=== PATIENT | female | born 1945 | race Hispanic/Latino ===

== ENCOUNTER 2019-01-06 05:04 | Outpatient (CLI) | payer MEDICARE, BC | END 2019-01-06 05:05 | disposition home or self-care (01) | LOC: PET-BROA 05:04 | DX: C18.9 Malignant neoplasm of colon, unspecified (principal) ==

== ENCOUNTER 2019-01-16 13:05 | Day surgery (SDC) | payer MEDICARE, BC ==
[2019-01-13 14:35] VITALS: BMI 34.4
[2019-01-16 14:08] LABS: BASO # 0.01 K/mm3 (0.0-2.0); BASO % 0.1 % (0.0-3.0); EOS # 0.2 (0.0-0.7); EOS % 3.3 % (1.5-5.0); HEMOGLOBIN 13.7 g/dL (12.0-16.0); LYMPH # 1.1 (1.2-3.4); LYMPH % 16.8 % (22.0-35.0); MEAN CELL VOLUME 90.7 fl (80.0-105.0); MEAN CORPUSCULAR HEMOGLOBIN 29.7 pg (25.0-35.0); MEAN CORPUSCULAR HGB CONC 32.7 g/dl (31.0-37.0); MEAN PLATELET VOLUME 10.1 fl (7.0-11.0); MONO # 0.5 (0.1-0.6); MONO % 6.9 % (1.0-6.0); RBC 4.62 10^6/uL (3.5-6.1); RED CELL DISTRIBUTION WIDTH 13.8 % (11.5-14.5); WHITE BLOOD COUNT 6.7 10^3/uL (4.5-11.0)
[2019-01-16 14:13] LABS: INR 1.11; PARTIAL THROMBOPLASTIN TIME 33.2 Seconds (26.9-38.3); PROTHROMBIN TIME 12.5 SECONDS (9.4-12.5)
[2019-01-16 14:14] LABS: BLOOD UREA NITROGEN 17 mg/dL (7-21); CALCIUM 9.8 mg/dL (8.4-10.5); GFR NON-AFRICAN AMERICAN > 60
[2019-01-16] MEDS ORDERED: Midazolam 2 MG/2 ML VIAL ONE (19:15)
[2019-01-16] MEDS ORDERED: Midazolam 2 MG/2 ML VIAL IVP ONE (19:25)
[2019-01-16] MEDS ORDERED: Oxycodone/Acetaminophen 5/325 mg Tab PO PRN (19:44)
[2019-01-16] MEDS ORDERED: Sodium Chloride 0.45% 1,000 ML IV SCH (19:45)
--- NOTE | 2019-01-16 20:34 | CT ---
PROCEDURE: CT guided pelvic biopsy. HISTORY: Colon carcinoma. 2 cm mass in the pelvis near the anastomosis. Positive PET. Evaluate for recurrence. PHYSICIAN(S): Liang Bolaños MD. TECHNIQUE: The relative risks and indications of the procedure were explained to the patient and consent obtained. The patient was placed prone on the CT scanner and preliminary images through the pelvis obtained. Conscious sedation and monitoring were provided throughout the procedure by a nurse. There is a triangular 2 cm opacity in the left pelvis corresponding to the abnormal mass seen on PET scan.. A left posterior trans gluteal approach was selected and the area prepped and draped in the usual sterile fashion. 1% Xylocaine was used to anesthetize the skin and soft tissues. A 17-gauge guiding needle was advanced into the 2 cm triangular mass in the left pelvis.. Its position was confirmed with CT. Using coaxial technique, multiple core biopsies were obtained. The postprocedure images show no evidence of significant hemorrhage. IMPRESSION: 1. CT-guided pelvic biopsy as described above.
[2019-01-17 01:51] VITALS: RESP 20
[2019-01-17 01:54] VITALS: PULSE 69
--- NOTE | 2019-01-17 02:23 | CP.PCM.PN ---
Subjective - Date & Time of Evaluation Date of Evaluation: 01/17/19 Time of Evaluation: 02:22 - Subjective Subjective: S: Patient has no acute symptoms. Nurse requested to hold discharge order. It is too late (10:45PM) and there is nobody at home to monitor patient. Had low pulse ox 90-92 went up to 98% after nasal canula 2l/ min. O: VSS. Not in distress. LUNGS: normal breathing pattern. A:Hypoxia. P:Placed on oxygen. Monitor FiO2. Will enter order to hold dicharge until AM. Objective - Vital Signs/Intake and Output Vital Signs (last 24 hours): Temp Pulse Resp BP Pulse Ox 97.4 F L 69 20 147/81 98 01/16/19 21:40 01/16/19 21:40 01/16/19 21:40 01/16/19 21:40 01/16/19 22:00 Intake and Output: 01/16/19 01/17/19 18:59 06:59 Intake Total 100 Balance 100 - Medications Medications: Current Medications Acetaminophen (Tylenol 325mg Tab) 650 mg PO Q4 PRN PRN Reason: Pain, Mild (1-3) Sodium Chloride (Sodium Chloride 0.45%) 1,000 mls @ 80 mls/hr IV .[id number] [facility] Ondansetron HCl (Zofran Inj) 4 mg IVP Q6H PRN PRN Reason: Nausea/Vomiting Oxycodone/Acetaminophen (Percocet 5/325 Mg Tab) 1 tab PO Q4H PRN PRN Reason: Pain, moderate (4-7) Stop: 01/19/19 19:45 - Labs Labs: 01/16/19 13:45 01/16/19 13:45 PT 12.5 SECONDS (9.4-12.5) 01/16/19 13:45 INR 1.11 01/16/19 13:45 APTT 33.2 Seconds (26.9-38.3) 01/16/19 13:45
[2019-01-17 08:45] VITALS: BP 132/64; TEMP 98.1; O2SAT 97
== END 2019-01-17 12:09 | disposition home or self-care (01) ==
LOC: SDS 13:05 → 3RSO 21:00 → SDS 01-17 12:09
PROVIDERS: ATTEND Radiology Vascular & Interventional Radiology
DX: C79.89 Secondary malignant neoplasm of other specified sites (principal); Z85.048 Personal history of other malignant neoplasm of rectum, rectosigmoid junction, and anus; Z93.3 Colostomy status; R09.02 Hypoxemia; I10 Essential (primary) hypertension; F41.9 Anxiety disorder, unspecified; Z90.710 Acquired absence of both cervix and uterus; Z88.0 Allergy status to penicillin

== ENCOUNTER 2019-01-23 12:56 | Outpatient (CLI) | payer MEDICARE, BC | END 2019-01-23 12:57 | disposition home or self-care (01) | LOC: PAT 12:56 ==

== ENCOUNTER 2019-01-27 07:12 | Inpatient (IN) | payer MEDICARE, BC ==
[2019-01-13 14:35] VITALS: BMI 34.4
[~2019-01-27 07:12] MED LIST: Clindamycin 300 MG/50 ML D5W Premix IVPB ONE; MetroNIDAZOLE 500 mg/100 ml IVPB ONE
[2019-01-27] MEDS ORDERED: ePHEDrine 50 mg/ml Inj ONE (09:10)
[2019-01-27] MEDS ORDERED: Phenylephrine 10 mg/ml Inj ONE (09:10)
[2019-01-27] MEDS ORDERED: Propofol 10 mg/ml Inj (20 ML) ONE (09:10)
[2019-01-27] MEDS ORDERED: Succinylcholine 200 mg/10 ml Inj IV ONE (09:10)
[2019-01-27] MEDS ORDERED: Rocuronium 10 mg/ml (5 ml) ONE ×2 (09:11→11:07)
[2019-01-27] MEDS ORDERED: Bupivacaine Liposomal Inj 20 ml ONE ×2 (09:30→13:20)
[2019-01-27] MEDS ORDERED: Bupivacaine 0.5% 50 ML IJ ONE ×2 (09:41→12:42)
[2019-01-27] MEDS ORDERED: metroNIDAZOLE IV 500 mg/100 ml 500 MG/100 ML BAG ONE (10:01)
[2019-01-27] MEDS ORDERED: Bupivacaine 0.5% Inj(30mL) IJ ONE (10:15)
--- NOTE | 2019-01-27 12:38 | RAD ---
Date of service: 01/27/2019 PROCEDURE: Fluoroscopy up to 1 hr HISTORY: N COMPARISON: TECHNIQUE: 4.1 sec of fluoro time. Cumulative dose 0.67 mGy. 2 images were submitted FINDINGS: The tip of the Port-A-Cath is seen in the right atrium. IMPRESSION: As above
[2019-01-27] MEDS ORDERED: Neostigmine Methylsulfate 3mg/3ml Syringe IV ONE (12:43)
[2019-01-27] MEDS ORDERED: Potassium Chloride 20 MEQ in Dextrose 5%/0.45% NS 1,000 ML IV SCH (14:15)
--- NOTE | 2019-01-27 14:17 | PCM.SURG1 ---
Surgeon's Initial Post Op Note - Surgeon's Notes Surgeon: Phill Brar MD Fnp: Maria Guadalupe Villasenor, PGY-4; Moon Lee, PGY-2 Type of Anesthesia: General Endo Anesthesia Administered By: Dr. Walters Pre-Operative Diagnosis: Pelvic mass, ventral hernias x 2, need for chemotherapy Operative Findings: Adhesions, small bowel enterotomy, see op report Post-Operative Diagnosis: Pelvic mass, ventral hernias x 2, need for chemotherapy Operation Performed: Exploratory laparotomy, primary ventral hernia repair x 2, primary parastomal hernia repair, small bowel resection with side to side anastomosis, RIJ portacath insertion Specimen/Specimens Removed: Small bowel, hernia sacs Estimated Blood Loss: EBL {In ML}: 250 Blood Products Given: N/A Drains Used: Jerrell Post-Op Condition: Fair Date of Surgery/Procedure: 01/27/19 Time of Surgery/Procedure: 14:17
[2019-01-27] MEDS ORDERED: HYDROmorphone 0.5 mg/0.5 ml ISec IVP PRN (14:21)
[2019-01-27] MEDS ORDERED: Metoprolol 1 mg/ml Inj IVP PRN (14:25)
[2019-01-27] MEDS ORDERED: Lactated Ringer's 1,000 ML IV SCH (14:30)
[2019-01-27] MEDS ORDERED: metroNIDAZOLE IV 500 mg/100 ml 500 MG/100 ML BAG IVPB SCH (15:15)
[2019-01-27] MEDS ORDERED: Clindamycin 600mg/50ml D5W 600 MG/50 ML VIAL IVPB SCH (15:15)
[2019-01-27] MEDS ORDERED: HYDROmorphone 0.5 mg/0.5 ml ISec ONE (15:25)
--- NOTE | 2019-01-27 15:54 | RAD ---
Date of service: 01/27/2019 HISTORY: RIJ portacath placement, in PACU COMPARISON: 01/23/2019 TECHNIQUE: 1 view obtained. FINDINGS: LUNGS: Right IJ Port-A-Cath terminates at the junction of the SVC and right atrium. There is no pneumothorax. Nasogastric tube is in satisfactory position PLEURA: No significant pleural effusion identified, no pneumothorax apparent. CARDIOVASCULAR: No aortic atherosclerotic calcification present. Mild cardiomegaly no pulmonary vascular congestion. OSSEOUS STRUCTURES: No significant abnormalities. VISUALIZED UPPER ABDOMEN: Normal. OTHER FINDINGS: None. IMPRESSION: Right IJ Port-A-Cath terminates at the junction of the SVC and right atrium. There is no pneumothorax. Nasogastric tube is in satisfactory position
[2019-01-27] MEDS ORDERED: Influenza Vaccine 60 mcg/0.5 mL SYR (4YR UP) IM ONE (22:48)
[2019-01-27] MEDS ORDERED: Pneumococcal 23-Valent Vaccine IM ONE (22:48)
[2019-01-28] MEDS: Lactated Ringer's 1,000 ML IV SCH ×2 (01:00→10:50)
[2019-01-28] MEDS ORDERED: Clindamycin 600mg/50ml D5W 600 MG/50 ML VIAL IVPB SCH (01:30)
[2019-01-28] MEDS ORDERED: metroNIDAZOLE IV 500 mg/100 ml 500 MG/100 ML BAG IVPB SCH (02:00)
[2019-01-28 07:04] LABS: HEMOGLOBIN 11.8 g/dL (12.0-16.0); LYMPH # 0.9 (1.2-3.4); LYMPH % 7.2 % (22.0-35.0); MEAN CELL VOLUME 89.6 fl (80.0-105.0); MEAN CORPUSCULAR HEMOGLOBIN 28.5 pg (25.0-35.0); MEAN CORPUSCULAR HGB CONC 31.8 g/dl (31.0-37.0); MEAN PLATELET VOLUME 10.1 fl (7.0-11.0); MONO % 7.5 % (1.0-6.0); RBC 4.14 10^6/uL (3.5-6.1); RED CELL DISTRIBUTION WIDTH 13.4 % (11.5-14.5); WHITE BLOOD COUNT 12.6 10^3/uL (4.5-11.0)
[2019-01-28 07:10] LABS: BLOOD UREA NITROGEN 12 mg/dL (7-21); CALCIUM 8.2 mg/dL (8.4-10.5); GFR NON-AFRICAN AMERICAN > 60
--- NOTE | 2019-01-28 09:33 | OP ---
PROCEDURE DATE: 01/27/2019 SURGEON: Phill Brar MD CHIEF MEDICAL DIRECTOR: Maria Guadalupe Villasenor DO, PGY-3 SECOND REGISTERED NURSE CARDIAC: Moon Lee DO, PGY-2 GOLD LETTERER: Dr. Selena ortiz. ANESTHESIA: General endotracheal - Q ball (On-Q). PREOPERATIVE DIAGNOSES: 1. Ventral hernia - paracolostomy hernia. 2. Recurrent rectal carcinoma. POSTOPERATIVE DIAGNOSES: 1. Ventral hernia - paracolostomy hernia. 2. Recurrent rectal carcinoma. 3. Second incisional ventral hernia (total two) and paracolostomy hernia. 4. Extensive adhesions. 5. Recurrent rectal cancer. PROCEDURES: 01/27/2019: 1. Exploratory laparotomy with lysis of adhesions. 2. Small bowel resection with anastomosis. 3. Repair of pericolostomy hernia. 4. Ventral herniorrhaphy x2. 5. Insertion of a right internal jugular single-lumen Port-A-Cath. OPERATIVE INDICATION: The patient is a 73-year-old female who is 3 years post abdominal perineal resection of the rectal carcinoma that had been preoperatively excised and treated with radiation. Over this period of time, she has been followed with PET - CT scanning demonstrating activity in the rectal space without finding any palpable lesion and a new lesion in the lower pelvis on the left side that is biopsied by Dr. Liang Bolaños with CT scan confirming adenocarcinoma consistent with recurrent rectal cancer. There are no other findings in the PET scanning and the patient has been advised that the oncologist would like to have the lesion removed, so chemotherapy can be initiated. At the time of the procedure, the patient will have a Port-A-Cath placed to facilitate the chemotherapy and the pericolostomy hernia and incisional hernia that have become quite large will be repaired at the same time. Risks, benefits and the alternatives with their anticipated outcomes were discussed with the patient and she signs the informed consent. DESCRIPTION OF PROCEDURE: The patient was brought to the operating room, identified by her wristband, undergoes time-out procedure, is placed on the table in a supine manner, undergoes the induction of general anesthesia and insertion of an endotracheal tube. Sequential compression devices were placed on the lower extremities. The abdomen was electrically clipped, prepped with Hibiclens, chlorhexidine preparation of the patient was aseptically draped. The colostomy is closed with a running locking 2-0 polyester suture to prevent spill and the incision was closed with iodine-impregnated -Drape. Midline incision was made from the pubis up all the way towards the xiphoid and sharp dissection carried down through to the hernia sac found below. Hemostasis was obtained with cautery. The hernia sac is dissected free and the peritoneum was entered between clamps and adhesions were encountered and were sharply lysed throughout. A second hernia sac is found in the upper end of the incision and this was then exposed with extension of the incision and excision of the hernia sac. Both hernia sacs submitted to pathology in formalin. The abdomen is now completely explored and safe for adhesions. No gross tumor was found anywhere throughout the multiple explorations including running of the small bowel more than 4 or 5 times. The pelvis contained multiple loops of small bowel in the region where the PET scanning lit up and with meticulous dissection, this was completely removed and gross examination of the presacral space failed to reveal any further malignancy. The mesentery is now somewhat more hidden by the dissection and it is elected at this point to excise this portion of the small bowel which was stuck in the pelvis near the region of the positive PET scan and a [id number] anastomosis was performed with the MARY stapling devices. The mesentery was closed with running 2-0 chromic catgut suture. Attention was now drawn to the paracolostomy hernia which was closed with interrupted #1 Prolene sutures from the inside of the abdomen closing the defect significantly and allowing one fingerbreadth alongside the descending colon. Attention was now drawn to the midline which was confirmed clear off any further hernias and closed with interrupted [id number] Smead-Schilling retention-type sutures with #1 Prolene sutures. A Jerrell drain was placed into the peritoneal cavity from the right side, placed down in the pelvis and secured with 2-0 Surgidac polyester suture. Once the subcutaneous space was completely closed and hemostasis confirmed, the wound was lavaged with saline and closed with 3-0 Polysorb continuous suture and the skin with the AutoSuture skin stapler. An On-Q ball is utilized with placement at the time of the incisional closure in the preperitoneal space and further infiltration with Exparel on the fascia and skin. The right internal jugular Port-A-Cath was placed under direct fluoroscopic vision and is secured with 3-0 Polysorb subcuticular closure and Dermabond adhesive. The Port-A-Cath was accessed at this point, flushed with heparinized saline and portable x-ray will be taken postoperatively. The patient is now awakened, extubated, transported to the recovery room in a satisfactory condition. Sponge, instrument and suture count were verified as correct at the end of the procedure. Estimated blood loss during the procedure was 250 mL of blood. Surgical assistants were present throughout and were extremely essential in the dissection and in the performance of this procedure. This dictation will be electronically signed without being read. Phill Brar MD
[2019-01-28] MEDS ORDERED: Potassium Chloride 20 mEq/15 ml LIQ UD PO STA (12:54)
--- NOTE | 2019-01-28 13:47 | CP.PCM.PCO ---
Additional Comments - Additional Comments Additional Comments: POD #1 operative report viewed, NGT, DENNY, monge intact, repeat labs in am, surgery following, PT eval pending
--- NOTE | 2019-01-28 14:01 | CP.PCM.PN ---
<Moon Lee - Last Filed: 01/28/19 14:04> Subjective - Date & Time of Evaluation Date of Evaluation: 01/28/19 Time of Evaluation: 09:20 - Subjective Subjective: General surgery progress note for Dr. Brar-Moon Lee, PGY-2 Pt seen/examined at bedside with surgical team Pt reports pain well controlled overnight without requiring break through IV pain medications. Reports abdominal pain with coughings and movement. States that she had some nausea and vomited last night- she attributes it to the pain medications. Pt reports feeling weak due to lack of PO intake for the past 5 days. No output to ostomy yet. NGT with 250 dark gastric contents out/12s. Jerrell with 70cc serosanguinous output over 24hrs. UOP 150cc/12 hrs. Objective - Vital Signs/Intake and Output Vital Signs (last 24 hours): Temp Pulse Resp BP Pulse Ox 99.9 F H 88 20 123/64 96 01/28/19 06:00 01/28/19 06:00 01/28/19 06:00 01/28/19 06:00 01/28/19 06:00 Intake and Output: 01/28/19 01/28/19 06:59 18:59 Intake Total 1500 Output Total 390 Balance 1110 - Medications Medications: Current Medications Enoxaparin Sodium (Lovenox) 40 mg SC DAILY [facility]; Protocol Hydromorphone HCl (Dilaudid) 0.25 mg IVP Q3H PRN PRN Reason: Pain, severe (8-10) Potassium Chloride 20 meq/ (Dextrose/Sodium Chloride) 1,010 mls @ 125 mls/hr IV .Q8H5M [facility] Metoprolol Tartrate (Lopressor) 2.5 mg IVP Q6 PRN PRN Reason: Hypertension Ondansetron HCl (Zofran Inj) 4 mg IVP Q6 PRN PRN Reason: Nausea/Vomiting Last Admin: 01/27/19 23:25 Dose: 4 mg Ondansetron HCl (Zofran Inj) 4 mg IVP ONCE PRN PRN Reason: Nausea/Vomiting - Labs Labs: 01/28/19 06:35 01/28/19 06:35 - Constitutional Appears: Non-toxic, No Acute Distress - Head Exam Head Exam: ATRAUMATIC, NORMAL INSPECTION, NORMOCEPHALIC - Eye Exam Eye Exam: EOMI, Normal appearance - ENT Exam ENT Exam: Mucous Membranes Moist, Normal Exam Additional comments: NGT in place in nares - Respiratory Exam Respiratory Exam: NORMAL BREATHING PATTERN - Cardiovascular Exam Cardiovascular Exam: REGULAR RHYTHM, +S1, +S2 - GI/Abdominal Exam GI & Abdominal Exam: Soft, Tenderness (over surgical incision sites). absent: Distended (obese), Firm, Hernia Additional comments: Midline incision with dressing in place- clean/dry/intact, Ostomy with no output Jerrell in place with ~10 cc serosanguious output to ball - Exam Additional comments: Monge cather in place with 150cc light yellow urine output - Extremities Exam Extremities Exam: Normal Inspection - Neurological Exam Neurological Exam: Alert, Awake, CN II-XII Intact, Oriented x3 - Psychiatric Exam Psychiatric exam: Normal Affect, Normal Mood - Skin Skin Exam: Dry, Intact, Normal Color, Warm Assessment and Plan - Assessment and Plan (Free Text) Assessment: 73F POD#1 s/p laparotomy with primary ventral hernia repairs x 2, primary parastomal hernia repair x 1, small bowel resection x1 Plan: Continue NGT Ok for ice chips IVF Continue Pain control- OnQ ball with local and prn breakthrough IV pain med Anti-emetic PRN Monitor ostomy for output Monitor Jerrell output Monitor NGT output Maintain abdominal binder Encourage IS use OOBTC PT Maintain monge until urine output adequate Strict I/Os Initiate DVT ppx - Lovenox SCDs DW Dr Maykel Lee, PGY- <Phill Brar - Last Filed: 01/29/19 10:31> Objective - Vital Signs/Intake and Output Vital Signs (last 24 hours): Temp Pulse Resp BP Pulse Ox 98.4 F 101 H 20 154/72 H 95 01/29/19 06:00 01/29/19 06:00 01/29/19 06:00 01/29/19 06:00 01/29/19 06:00 Intake and Output: 01/29/19 01/29/19 06:59 18:59 Intake Total 2750 Output Total 1095 Balance 1655 - Medications Medications: Current Medications Acetaminophen (Tylenol 325mg Tab) 650 mg PO Q6H PRN PRN Reason: Pain, Mild (1-3) Enoxaparin Sodium (Lovenox) 40 mg SC DAILY [facility]; Protocol Last Admin: 01/28/19 14:15 Dose: 40 mg Hydralazine HCl (Apresoline) 10 mg PO Q6 PRN PRN Reason: SBP>150 Hydromorphone HCl (Dilaudid) 0.25 mg IVP Q3H PRN PRN Reason: Pain, severe (8-10) Last Admin: 01/29/19 01:06 Dose: 0.25 mg Potassium Chloride 20 meq/ (Dextrose/Sodium Chloride) 1,010 mls @ 125 mls/hr IV .Q8H5M [facility] Last Admin: 01/29/19 05:57 Dose: 125 mls/hr Ondansetron HCl (Zofran Inj) 4 mg IVP Q6 PRN PRN Reason: Nausea/Vomiting Last Admin: 01/29/19 01:06 Dose: 4 mg Pantoprazole Sodium (Protonix Inj) 40 mg IVP DAILY [facility] - Labs Labs: 01/29/19 07:00 01/29/19 07:00 Assessment and Plan - Assessment and Plan (Free Text) Plan: PO1 250 cc ngt drainage Christiano Hold lovenox/No po KCl \ R Maykel EASTMAN FACS
[2019-01-28] MEDS: Enoxaparin 40 mg Syringe SC SCH (14:15)
[2019-01-28] MEDS: Potassium Chloride 20 MEQ in Dextrose 5%/0.45% NS 1,000 ML IV SCH ×2 (14:34→21:43)
[2019-01-28] MEDS ORDERED: Pantoprazole 40mg/100mL NS 40 MG/100 ML BAG IVPB SCH (20:45)
--- NOTE | 2019-01-28 20:48 | CP.PCM.PCO ---
Physician Communication Note - Physician Communication Note Physician Communication Note: LAM Maldonado:Rx-PPI/Hold Lovenox/Ice chips/Hold PO KCl
[2019-01-29] MEDS: HYDROmorphone 0.5 mg/0.5 ml ISec IVP PRN ×2 (01:06→11:35)
[2019-01-29] MEDS: Potassium Chloride 20 MEQ in Dextrose 5%/0.45% NS 1,000 ML IV SCH ×3 (05:57→23:15)
[2019-01-29 07:14] LABS: BASO # 0.01 K/mm3 (0.0-2.0); BASO % 0.1 % (0.0-3.0); EOS % 0.1 % (1.5-5.0); LYMPH # 0.9 (1.2-3.4); LYMPH % 7.2 % (22.0-35.0); MEAN CELL VOLUME 92.2 fl (80.0-105.0); MEAN CORPUSCULAR HEMOGLOBIN 29.7 pg (25.0-35.0); MEAN CORPUSCULAR HGB CONC 32.3 g/dl (31.0-37.0); MEAN PLATELET VOLUME 10.2 fl (7.0-11.0); MONO # 0.9 (0.1-0.6); RBC 3.7 10^6/uL (3.5-6.1); WHITE BLOOD COUNT 12.4 10^3/uL (4.5-11.0)
[2019-01-29 07:34] LABS: BLOOD UREA NITROGEN 7 mg/dL (7-21); CALCIUM 8.3 mg/dL (8.4-10.5); GFR NON-AFRICAN AMERICAN > 60
--- NOTE | 2019-01-29 09:35 | CP.PCM.PN ---
Subjective - Date & Time of Evaluation Date of Evaluation: 01/29/19 Time of Evaluation: 07:00 - Subjective Subjective: GENERAL SURGERY PROGRESS NOTE FOR DR. HEDRICK Patient seen and examined at bedside. She states that pain is well controlled without narcotic pain medication. Reports pain only when coughing or moving. She refused PT yesterday stating she was too weak. No output into colostomy yet. Objective - Vital Signs/Intake and Output Vital Signs (last 24 hours): Temp Pulse Resp BP Pulse Ox 98.4 F 101 H 20 154/72 H 95 01/29/19 06:00 01/29/19 06:00 01/29/19 06:00 01/29/19 06:00 01/29/19 06:00 Intake and Output: 01/29/19 01/29/19 06:59 18:59 Intake Total 2750 Output Total 1095 Balance 1655 - Medications Medications: Current Medications Acetaminophen (Tylenol 325mg Tab) 650 mg PO Q6H PRN PRN Reason: Pain, Mild (1-3) Enoxaparin Sodium (Lovenox) 40 mg SC DAILY [facility]; Protocol Last Admin: 01/28/19 14:15 Dose: 40 mg Hydralazine HCl (Apresoline) 10 mg PO Q6 PRN PRN Reason: SBP>150 Hydromorphone HCl (Dilaudid) 0.25 mg IVP Q3H PRN PRN Reason: Pain, severe (8-10) Last Admin: 01/29/19 01:06 Dose: 0.25 mg Potassium Chloride 20 meq/ (Dextrose/Sodium Chloride) 1,010 mls @ 125 mls/hr IV .Q8H5M [facility] Last Admin: 01/29/19 05:57 Dose: 125 mls/hr Ondansetron HCl (Zofran Inj) 4 mg IVP Q6 PRN PRN Reason: Nausea/Vomiting Last Admin: 01/29/19 01:06 Dose: 4 mg Pantoprazole Sodium (Protonix Inj) 40 mg IVP DAILY [facility] - Labs Labs: 01/29/19 07:00 01/29/19 07:00 - Constitutional Appears: Non-toxic, No Acute Distress - Head Exam Head Exam: ATRAUMATIC, NORMAL INSPECTION - Eye Exam Eye Exam: EOMI, Normal appearance - Respiratory Exam Respiratory Exam: NORMAL BREATHING PATTERN. absent: Respiratory Distress - Cardiovascular Exam Cardiovascular Exam: +S1, +S2 - GI/Abdominal Exam GI & Abdominal Exam: Soft, Tenderness (appropriate tenderness to incision area). absent: Distended, Firm, Guarding, Rigid Additional comments: Jerrell drain in place with 25cc serosanguinous output overnight NG tube with 100cc brown/coffee ground output overnight Monge with 700cc output overnight Abdominal binder in place No output into colostomy yet On-Q in place @ 3cc/hr - Neurological Exam Neurological Exam: Alert, Awake, Oriented x3 - Psychiatric Exam Psychiatric exam: Normal Affect, Normal Mood - Skin Skin Exam: Dry, Normal Color Assessment and Plan - Assessment and Plan (Free Text) Assessment: 73yo F with ventral hernia, parastomal hernia, and pelvic mass (path = adenocarcinoma) now s/p Exploratory laparotomy, primary ventral hernia repair x 2, primary parastomal hernia repair, small bowel resection with side to side anastomosis, RIJ portacath insertion POD#2 - Good urine output, DC monge - Will continue to monitor for bowel function in colostomy bag - Lovenox held due to output from NG tube - Continue NG tube output - Protonix - FU pathology - CEA ordered - Synthroid started - Strongly encouraged IS use and OOB, ambulation - Discussed plan with Dr. Maykel Villasenor PGY-4
[2019-01-30 07:04] LABS: BASO # 0.01 K/mm3 (0.0-2.0); BASO % 0.1 % (0.0-3.0); EOS % 0.2 % (1.5-5.0); HEMOGLOBIN 11.2 g/dL (12.0-16.0); LYMPH # 0.8 (1.2-3.4); LYMPH % 6.4 % (22.0-35.0); MEAN CELL VOLUME 91.5 fl (80.0-105.0); MEAN CORPUSCULAR HEMOGLOBIN 28.9 pg (25.0-35.0); MEAN CORPUSCULAR HGB CONC 31.5 g/dl (31.0-37.0); MEAN PLATELET VOLUME 9.9 fl (7.0-11.0); MONO # 0.7 (0.1-0.6); MONO % 5.2 % (1.0-6.0); RBC 3.88 10^6/uL (3.5-6.1); RED CELL DISTRIBUTION WIDTH 13.8 % (11.5-14.5); WHITE BLOOD COUNT 12.6 10^3/uL (4.5-11.0)
[2019-01-30] MEDS: HYDROmorphone 0.5 mg/0.5 ml ISec IVP PRN ×3 (07:20→20:35)
[2019-01-30] MEDS: Potassium Chloride 20 MEQ in Dextrose 5%/0.45% NS 1,000 ML IV SCH (07:20)
[2019-01-30 07:29] LABS: BLOOD UREA NITROGEN 4 mg/dL (7-21); CALCIUM 8.9 mg/dL (8.4-10.5); GFR NON-AFRICAN AMERICAN > 60
[2019-01-30 07:36] LABS: FREE T4 0.95 ng/dL (0.78-2.19)
--- NOTE | 2019-01-30 10:38 | CP.PCM.PN ---
Subjective - Date & Time of Evaluation Date of Evaluation: 01/30/19 Time of Evaluation: 07:00 - Subjective Subjective: GENERAL SURGERY PROGRESS NOTE FOR DR. HEDRICK Patient seen and examined at bedside. She states that PT came yesterday but that she did not get OOB. No output into colostomy yet. Denies nausea or vomiting. She states that she does not want any strong pain medication because she doesn't like how it makes her feel. Objective - Vital Signs/Intake and Output Vital Signs (last 24 hours): Temp Pulse Resp BP Pulse Ox 98 F 105 H 18 144/76 93 L 01/30/19 06:00 01/30/19 06:00 01/30/19 06:00 01/30/19 06:12 01/30/19 06:00 Intake and Output: 01/30/19 01/30/19 06:59 18:59 Intake Total 1500 Output Total 260 Balance 1240 - Medications Medications: Current Medications Acetaminophen (Tylenol 325mg Tab) 650 mg PO Q6H PRN PRN Reason: Pain, Mild (1-3) Enoxaparin Sodium (Lovenox) [address] [facility]; Protocol Last Admin: 01/28/19 14:15 Dose: 40 mg Hydralazine HCl (Apresoline) 10 mg IVP Q6 PRN PRN Reason: Other Last Admin: 01/30/19 05:18 Dose: 10 mg Hydromorphone HCl (Dilaudid) 0.25 mg IVP Q3H PRN PRN Reason: Pain, severe (8-10) Last Admin: 01/30/19 07:20 Dose: 0.25 mg Potassium Chloride 20 meq/ (Dextrose/Sodium Chloride) 1,010 mls @ 125 mls/hr IV .Q8H5M [facility] Last Admin: 01/30/19 07:20 Dose: 125 mls/hr Ketorolac Tromethamine (Toradol) 15 mg IVP Q6 PRN PRN Reason: Pain, moderate (4-7) Levothyroxine Sodium (Synthroid) [address] [facility] Levothyroxine Sodium (Synthroid) [address] [facility] Ondansetron HCl (Zofran Inj) 4 mg IVP Q6 PRN PRN Reason: Nausea/Vomiting Last Admin: 01/30/19 07:20 Dose: 4 mg Pantoprazole Sodium (Protonix Inj) 40 mg IVP DAILY [facility] Last Admin: 01/29/19 11:35 Dose: 40 mg - Labs Labs: 01/30/19 06:40 01/30/19 06:40 - Constitutional Appears: Non-toxic, No Acute Distress - Head Exam Head Exam: ATRAUMATIC, NORMAL INSPECTION - Eye Exam Eye Exam: EOMI, Normal appearance - Respiratory Exam Respiratory Exam: NORMAL BREATHING PATTERN. absent: Respiratory Distress - Cardiovascular Exam Cardiovascular Exam: Tachycardia - GI/Abdominal Exam GI & Abdominal Exam: Soft, Tenderness (mahin-incisional tenderness). absent: Distended, Firm, Guarding, Rigid, Rebound Additional comments: Jerrell drain in place with 20cc serosanguinous output overnight NG tube with 100cc gastric output over past 24 hours Abdominal binder in place No output into colostomy yet On-Q in place @ 3cc/hr - Neurological Exam Neurological Exam: Alert, Awake, Oriented x3 - Psychiatric Exam Psychiatric exam: Normal Affect, Normal Mood - Skin Skin Exam: Dry, Normal Color Assessment and Plan - Assessment and Plan (Free Text) Assessment: 73yo F with ventral hernia, parastomal hernia, and pelvic mass (path = adenocarcinoma) now s/p Exploratory laparotomy, primary ventral hernia repair x 2, primary parastomal hernia repair, small bowel resection with side to side anastomosis, RIJ portacath insertion POD#3 - Will continue to monitor for bowel function in colostomy bag - Toradol added for pain control - Lovenox for DVT PPx - DC NG tube - DC Jerrell drain - Protonix - Pathology = no malignancy in specimen - CEA 0.5 - Strongly encouraged IS use and OOB, ambulation - Discussed plan with Dr. Maykel Villasenor PGY-4
[2019-01-30] MEDS: Enoxaparin 40 mg Syringe SC SCH (10:52)
[2019-01-30] MEDS ORDERED: 0.125% Bupivacaine in 0.9% NS 400mL On Q pump IJ SCH (15:00)
[2019-01-31] MEDS: Potassium Chloride 20 MEQ in Dextrose 5%/0.45% NS 1,000 ML IV SCH (02:07)
[2019-01-31] MEDS: HYDROmorphone 0.5 mg/0.5 ml ISec IVP PRN (02:50)
[2019-01-31 05:50] VITALS: PULSE 100
[2019-01-31 07:10] LABS: BASO # 0.01 K/mm3 (0.0-2.0); BASO % 0.1 % (0.0-3.0); EOS # 0.2 (0.0-0.7); EOS % 1.5 % (1.5-5.0); HEMOGLOBIN 11.1 g/dL (12.0-16.0); LYMPH % 10.4 % (22.0-35.0); MEAN CELL VOLUME 92.7 fl (80.0-105.0); MEAN CORPUSCULAR HGB CONC 31.3 g/dl (31.0-37.0); MEAN PLATELET VOLUME 9.9 fl (7.0-11.0); MONO # 0.7 (0.1-0.6); MONO % 6.8 % (1.0-6.0); RBC 3.83 10^6/uL (3.5-6.1)
[2019-01-31 07:21] LABS: BLOOD UREA NITROGEN 6 mg/dL (7-21); CALCIUM 7.3 mg/dL (8.4-10.5); GFR NON-AFRICAN AMERICAN > 60
[2019-01-31 07:41] VITALS: BP 120/73
[2019-01-31 07:51] VITALS: RESP 20; TEMP 98.4; O2SAT 93
--- NOTE | 2019-01-31 08:18 | CP.PCM.PN ---
Subjective - Date & Time of Evaluation Date of Evaluation: 01/31/19 Time of Evaluation: 07:00 - Subjective Subjective: GENERAL SURGERY PROGRESS NOTE FOR DR. HEDRICK Patient seen and examined at bedside. She was OOB to chair yesterday for 2 hours but had nausea and requested to go back into bed. The importance of being OOB and ambulating was again explained to the patient but she still requested to lay back in bed. Currently, she complains of nausea and was requesting Zofran which was given. On-Q was increased to 6cc/hr. Dressing was changed. No output yet from colostomy. Objective - Vital Signs/Intake and Output Vital Signs (last 24 hours): Temp Pulse Resp BP Pulse Ox 98.4 F 100 H 20 120/73 93 L 01/31/19 06:00 01/31/19 06:00 01/31/19 06:00 01/31/19 07:41 01/31/19 06:00 Intake and Output: 01/31/19 01/31/19 06:59 18:59 Intake Total 0 Balance 0 - Medications Medications: Current Medications Acetaminophen (Tylenol 325mg Tab) 650 mg PO Q6H PRN PRN Reason: Pain, Mild (1-3) Enoxaparin Sodium (Lovenox) 40 mg SC DAILY [facility]; Protocol Last Admin: 01/30/19 10:52 Dose: 40 mg Hydralazine HCl (Apresoline) 10 mg IVP Q6 PRN PRN Reason: Other Last Admin: 01/31/19 05:50 Dose: 10 mg Hydromorphone HCl (Dilaudid) 0.25 mg IVP Q3H PRN PRN Reason: Pain, severe (8-10) Last Admin: 01/31/19 02:50 Dose: 0.25 mg Potassium Chloride 20 meq/ (Dextrose/Sodium Chloride) 1,010 mls @ 125 mls/hr IV .Q8H5M [facility] Last Admin: 01/31/19 02:07 Dose: 125 mls/hr Ketorolac Tromethamine (Toradol) 15 mg IVP Q6 PRN PRN Reason: Pain, moderate (4-7) Levothyroxine Sodium (Synthroid) 25 mcg PO TAN [facility] Levothyroxine Sodium (Synthroid) 25 mcg PO TUE [facility] Ondansetron HCl (Zofran Inj) 4 mg IVP Q6 PRN PRN Reason: Nausea/Vomiting Last Admin: 01/31/19 07:38 Dose: 4 mg Pantoprazole Sodium (Protonix Inj) 40 mg IVP DAILY [facility] Last Admin: 01/30/19 10:52 Dose: 40 mg - Labs Labs: 01/31/19 06:30 01/31/19 06:30 - Constitutional Appears: Non-toxic, No Acute Distress - Head Exam Head Exam: ATRAUMATIC, NORMAL INSPECTION - Respiratory Exam Respiratory Exam: NORMAL BREATHING PATTERN. absent: Respiratory Distress - Cardiovascular Exam Cardiovascular Exam: Tachycardia - GI/Abdominal Exam GI & Abdominal Exam: Soft, Tenderness (mild mahin-incisional tenderness). absent: Distended, Firm, Guarding, Rigid, Rebound Additional comments: Abdominal binder in place No output into colostomy yet On-Q in place @ 6cc/hr Dressing removed and replaced. 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 Maykel Villasenor PGY-4
[2019-01-31] MEDS: Enoxaparin 40 mg Syringe SC SCH (10:54)
== END 2019-01-31 13:28 | DRG 331 ==
LOC: SDS 07:12 → 5RNO 14:07 → SDS 14:07 → 5RNO 16:44
PROVIDERS: ADMIT Surgery; ATTEND Surgery
PROC: 0JH60WZ Insertion of Totally Implantable Vascular Access Device into Chest Subcutaneous Tissue and Fascia, Open Approach (ICD-10-PCS; 2019-01-27)
PROC: 05HM33Z Insertion of Infusion Device into Right Internal Jugular Vein, Percutaneous Approach (ICD-10-PCS; 2019-01-27)
PROC: 0DT80ZZ Resection of Small Intestine, Open Approach (ICD-10-PCS; principal; 2019-01-27 09:00)
PROC: 0WQF0ZZ Repair Abdominal Wall, Open Approach (ICD-10-PCS; 2019-01-27 09:00)
PROC: 0D9670Z Drainage of Stomach with Drainage Device, Via Natural or Artificial Opening (ICD-10-PCS; 2019-01-28)
DX: C20 Malignant neoplasm of rectum (principal); K43.2 Incisional hernia without obstruction or gangrene; K43.5 Parastomal hernia without obstruction or gangrene; Z85.048 Personal history of other malignant neoplasm of rectum, rectosigmoid junction, and anus; Z92.3 Personal history of irradiation; Z93.3 Colostomy status; Z53.20 Procedure and treatment not carried out because of patient's decision for unspecified reasons; I10 Essential (primary) hypertension; Z88.0 Allergy status to penicillin; K66.0 Peritoneal adhesions (postprocedural) (postinfection)

== ENCOUNTER 2019-01-31 13:31 | Inpatient (IN) | payer OTHER, BC ==
[2019-01-31 13:39] VITALS: BMI 34.7
[2019-01-31] MEDS ORDERED: HYDROmorphone 0.5 mg/0.5 ml ISec IVP PRN (13:53)
[2019-01-31] MEDS ORDERED: Pneumococcal 23-Valent Vaccine IM ONE (15:31)
[2019-01-31] MEDS ORDERED: Influenza Vaccine 60 mcg/0.5 mL SYR (4YR UP) IM ONE (15:31)
[2019-01-31] MEDS ORDERED: 0.125% Bupivacaine in 0.9% NS 400mL On Q pump IJ SCH (16:30)
[2019-01-31] MEDS ORDERED: Bisacodyl 5mg EC Tab PO ONE (16:36)
[2019-02-01] MEDS: Enoxaparin 40 mg Syringe SC SCH (06:17)
--- NOTE | 2019-02-01 08:53 | CP.PCM.PN ---
Subjective - Date & Time of Evaluation Date of Evaluation: 02/01/19 Time of Evaluation: 07:00 - Subjective Subjective: GENERAL SURGERY PROGRESS NOTE FOR DR. HEDRICK Patient seen and examined at bedside. She was transferred to TCU yesterday. Overnight, pt vomited small amount. She was given zofran and her nausea resolved. On-Q running at 3cc/hr as patient did not want a higher rate. Dressing was changed. No output yet from colostomy. Objective - Vital Signs/Intake and Output Vital Signs (last 24 hours): Temp Pulse Resp BP Pulse Ox 97.8 F 124 H 18 172/101 H 01/31/19 15:11 02/01/19 05:26 01/31/19 15:11 02/01/19 05:26 Intake and Output: 02/01/19 02/01/19 06:59 18:59 Intake Total 320 Balance 320 - Medications Medications: Current Medications Acetaminophen (Tylenol 325mg Tab) 650 mg PO Q6H PRN; Protocol PRN Reason: Pain, Mild (1-3) Alprazolam (Xanax) 0.25 mg PO PRN PRN; Protocol PRN Reason: Anxiety Stop: 02/08/19 08:47 Atenolol (Tenormin) 25 mg PO BID [facility] Enoxaparin Sodium (Lovenox) 40 mg SC 0600 [facility]; Protocol Last Admin: 02/01/19 06:17 Dose: 40 mg Hydralazine HCl (Apresoline) 10 mg IVP Q6 PRN; Protocol PRN Reason: Systolic Blood Pressure Last Admin: 02/01/19 05:26 Dose: 10 mg Hydromorphone HCl (Dilaudid) 0.25 mg IVP Q3H PRN; Protocol PRN Reason: Pain, severe (8-10) Potassium Chloride 20 meq/ (Sodium Chloride) 1,010 mls @ 125 mls/hr IV .Q8H5M [facility] Last Admin: 02/01/19 06:14 Dose: 125 mls/hr Ketorolac Tromethamine (Toradol) 15 mg IVP Q6H PRN; Protocol PRN Reason: Pain, moderate (4-7) Last Admin: 02/01/19 06:19 Dose: 15 mg Levothyroxine Sodium (Synthroid) 25 mcg PO TUE [facility]; Protocol Levothyroxine Sodium (Synthroid) 25 mcg PO TAN [facility]; Protocol Metoclopramide HCl (Reglan) 5 mg PO 0600,1130,1630,2200 [facility] Ondansetron HCl (Zofran Inj) 4 mg IVP Q6H PRN; Protocol PRN Reason: Nausea/Vomiting Last Admin: 02/01/19 06:15 Dose: 4 mg Pantoprazole Sodium (Protonix Inj) 40 mg IVP 0600 [facility]; Protocol Last Admin: 02/01/19 06:15 Dose: 40 mg Scopolamine (Transderm-Scop) 1 patch TD Q3D [facility]; Protocol Last Admin: 01/31/19 17:21 Dose: Not Given - Constitutional Appears: Non-toxic, No Acute Distress - Head Exam Head Exam: ATRAUMATIC, NORMAL INSPECTION - Eye Exam Eye Exam: EOMI, Normal appearance - Respiratory Exam Respiratory Exam: NORMAL BREATHING PATTERN. absent: Respiratory Distress - Cardiovascular Exam Cardiovascular Exam: +S1, +S2 - GI/Abdominal Exam GI & Abdominal Exam: Soft. absent: Distended, Firm, Guarding, Rigid, Tenderness, Rebound Additional comments: Abdominal binder in place No output into colostomy yet On-Q in place @ 3cc/hr Dressing removed and replaced. 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 Maykel Villasenor PGY-4
[2019-02-01] MEDS ORDERED: Oxycodone/Acetaminophen 5/325 mg Tab PO PRN (08:58)
[2019-02-01 10:14] LABS: BASO # 0.01 K/mm3 (0.0-2.0); BASO % 0.1 % (0.0-3.0); EOS % 0.4 % (1.5-5.0); LYMPH # 1.1 (1.2-3.4); LYMPH % 10.1 % (22.0-35.0); MEAN CELL VOLUME 91.5 fl (80.0-105.0); MEAN CORPUSCULAR HEMOGLOBIN 29.1 pg (25.0-35.0); MEAN CORPUSCULAR HGB CONC 31.7 g/dl (31.0-37.0); MEAN PLATELET VOLUME 9.7 fl (7.0-11.0); MONO # 0.7 (0.1-0.6); MONO % 6.4 % (1.0-6.0); RBC 4.13 10^6/uL (3.5-6.1); RED CELL DISTRIBUTION WIDTH 13.9 % (11.5-14.5); WHITE BLOOD COUNT 10.6 10^3/uL (4.5-11.0)
[2019-02-02] MEDS: Enoxaparin 40 mg Syringe SC SCH (06:57)
[2019-02-02 07:43] LABS: BLOOD UREA NITROGEN 19 mg/dL (7-21); CALCIUM 8.6 mg/dL (8.4-10.5); GFR NON-AFRICAN AMERICAN > 60
--- NOTE | 2019-02-02 08:22 | CP.PCM.PN ---
Subjective - Date & Time of Evaluation Date of Evaluation: 02/02/19 Time of Evaluation: 08:40 - Subjective Subjective: GENERAL SURGERY PROGRESS NOTE FOR DR. HEDRICK Patient seen and examined at bedside. Pt is resting comfortably. Pt with multiple episodes of bilious vomiting since early this morning, about 4-5 episodes as per pt, nonbloody. Denies fever, chills, chest pain, sob, abdominal pain, diarrhea, hematochezia, melena. On-Q replaced and resumed at 5 cc/hr. Pt reports passing helen through the ostomy bag. Pt with episode of bilious vomiting prior to examination, and given Zofran and Toradol. Given Reglan 5 mg IVP as well. Objective - Vital Signs/Intake and Output Vital Signs (last 24 hours): Temp Pulse Resp BP Pulse Ox 97.6 F 86 20 159/85 H 98 02/02/19 06:00 02/02/19 06:00 02/02/19 06:00 02/02/19 06:00 02/02/19 06:00 Intake and Output: 02/02/19 02/02/19 06:59 18:59 Intake Total 0 Balance 0 - Medications Medications: Current Medications Acetaminophen (Tylenol 325mg Tab) 650 mg PO Q6H PRN; Protocol PRN Reason: Pain, Mild (1-3) Alprazolam (Xanax) 0.25 mg PO Q12H PRN; Protocol PRN Reason: Anxiety Stop: 02/08/19 08:47 Atenolol (Tenormin) 25 mg PO BID [facility] Last Admin: 02/01/19 17:26 Dose: 25 mg Enoxaparin Sodium (Lovenox) 40 mg SC 0600 [facility]; Protocol Last Admin: 02/02/19 06:57 Dose: Not Given Hydralazine HCl (Apresoline) 10 mg IVP Q6 PRN; Protocol PRN Reason: Systolic Blood Pressure Last Admin: 02/01/19 05:26 Dose: 10 mg Potassium Chloride 20 meq/ (Sodium Chloride) 1,010 mls @ 125 mls/hr IV .Q8H5M [facility] Last Admin: 02/02/19 05:50 Dose: 125 mls/hr Ketorolac Tromethamine (Toradol) 15 mg IVP Q6H PRN; Protocol PRN Reason: Pain, moderate (4-7) Last Admin: 02/02/19 05:44 Dose: 15 mg Levothyroxine Sodium (Synthroid) 25 mcg PO TUE [facility]; Protocol Levothyroxine Sodium (Synthroid) 25 mcg PO TAN [facility]; Protocol Metoclopramide HCl (Reglan) 5 mg PO 0600,1130,1630,2200 [facility] Last Admin: 02/02/19 06:04 Dose: Not Given Ondansetron HCl (Zofran Inj) 4 mg IVP Q6H PRN; Protocol PRN Reason: Nausea/Vomiting Last Admin: 02/02/19 05:43 Dose: 4 mg Oxycodone/Acetaminophen (Percocet 5/325 Mg Tab) 1 tab PO Q4H PRN PRN Reason: Pain, severe (8-10) Stop: 02/04/19 08:59 Pantoprazole Sodium (Protonix Inj) 40 mg IVP 0600 [facility]; Protocol Last Admin: 02/02/19 06:57 Dose: Not Given Scopolamine (Transderm-Scop) 1 patch TD Q3D [facility]; Protocol Last Admin: 01/31/19 17:21 Dose: Not Given - Labs Labs: 02/01/19 10:00 02/02/19 07:00 - Constitutional Appears: Non-toxic, No Acute Distress - Additional Findings Additional findings: - Constitutional Appears: Non-toxic, No Acute Distress - Head Exam Head Exam: ATRAUMATIC, NORMAL INSPECTION - Eye Exam Eye Exam: EOMI, Normal appearance - Respiratory Exam Respiratory Exam: NORMAL BREATHING PATTERN. absent: Respiratory Distress - Cardiovascular Exam Cardiovascular Exam: +S1, +S2 - GI/Abdominal Exam GI & Abdominal Exam: Soft. 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 Plan: Diet advanced to CLD as pt passing gas through ostomy ON-Q replaced, at 5cc/hr, Continue toradol, percocet for breakthrough pain Will continue to monitor for bowel function in colostomy bag Lovenox for VTE PPX Continue Zofran IVP PRN nausea, Reglan PO BR[facility]O Continue home PO meds: atenolol, PRN xanax Strongly encouraged IS use and OOB to chair Dulcolax to move bowels Discussed plan with Dr. Maykel Jessica PGY1 Pager#: [phone]
--- NOTE | 2019-02-02 09:54 | RAD ---
Date of service: 01/31/2019 HISTORY: s/p abdominal surgery COMPARISON: CT 08/21/2016 TECHNIQUE: 1 view obtained. FINDINGS: BOWEL: Mildly dilated small bowel loops are seen. This could be secondary to ileus. Early obstruction cannot be excluded. Surgical clips are seen to the left of midline BONES: Normal. OTHER FINDINGS: None. IMPRESSION: Mildly dilated small bowel loops are seen. This could be secondary to ileus. Early obstruction cannot be excluded. Surgical clips are seen to the left of midline
[2019-02-02] MEDS ORDERED: Bisacodyl 5mg EC Tab PO ONE (11:15)
[2019-02-03] MEDS: Enoxaparin 40 mg Syringe SC SCH (05:34)
[2019-02-03 07:29] LABS: BASO # 0.02 K/mm3 (0.0-2.0); BASO % 0.3 % (0.0-3.0); EOS # 0.4 (0.0-0.7); EOS % 4.4 % (1.5-5.0); LYMPH # 0.7 (1.2-3.4); LYMPH % 9.1 % (22.0-35.0); MEAN CELL VOLUME 92.9 fl (80.0-105.0); MEAN CORPUSCULAR HEMOGLOBIN 28.4 pg (25.0-35.0); MEAN CORPUSCULAR HGB CONC 30.6 g/dl (31.0-37.0); MEAN PLATELET VOLUME 9.1 fl (7.0-11.0); MONO # 0.5 (0.1-0.6); MONO % 6.8 % (1.0-6.0); RBC 3.52 10^6/uL (3.5-6.1); RED CELL DISTRIBUTION WIDTH 14.1 % (11.5-14.5); WHITE BLOOD COUNT 7.9 10^3/uL (4.5-11.0)
[2019-02-03 07:44] LABS: BLOOD UREA NITROGEN 12 mg/dL (7-21); CALCIUM 8.5 mg/dL (8.4-10.5); GFR NON-AFRICAN AMERICAN > 60
[2019-02-03] MEDS ORDERED: Levothyroxine 25 MCG TAB PO SCH (10:00)
[2019-02-03 16:50] VITALS: RESP 18
--- NOTE | 2019-02-03 18:13 | CP.PCM.PN ---
Subjective - Date & Time of Evaluation Date of Evaluation: 02/03/19 Time of Evaluation: 07:00 - Subjective Subjective: GENERAL SURGERY PROGRESS NOTE FOR DR. HEDRICK Patient seen and examined at bedside at TCU. She is doing better, nausea now resolved. She is ambulating. She is tolerating liquid diet. She is using her IS and denies abdominal pain. Objective - Vital Signs/Intake and Output Vital Signs (last 24 hours): Temp Pulse Resp BP Pulse Ox 98.3 F 78 18 153/66 H 94 L 02/03/19 16:00 02/03/19 16:00 02/03/19 16:00 02/03/19 16:00 02/03/19 16:00 Intake and Output: 02/03/19 02/03/19 06:59 18:59 Intake Total 240 Balance 240 - Medications Medications: Current Medications Acetaminophen (Tylenol 325mg Tab) 650 mg PO Q6H PRN; Protocol PRN Reason: Pain, Mild (1-3) Alprazolam (Xanax) 0.25 mg PO Q12H PRN; Protocol PRN Reason: Anxiety Stop: 02/08/19 08:47 Atenolol (Tenormin) 25 mg PO BID [facility] Last Admin: 02/03/19 10:05 Dose: 25 mg Enoxaparin Sodium (Lovenox) 40 mg SC 0600 [facility]; Protocol Last Admin: 02/03/19 05:34 Dose: 40 mg Hydralazine HCl (Apresoline) 10 mg IVP Q6 PRN; Protocol PRN Reason: Systolic Blood Pressure Last Admin: 02/01/19 05:26 Dose: 10 mg Potassium Chloride 20 meq/ (Sodium Chloride) 1,010 mls @ 50 mls/hr IV .[id number] [facility] Last Admin: 02/03/19 15:45 Dose: 50 mls/hr Ketorolac Tromethamine (Toradol) 15 mg IVP Q6H PRN; Protocol PRN Reason: Pain, moderate (4-7) Last Admin: 02/02/19 05:44 Dose: 15 mg Levothyroxine Sodium (Synthroid) 25 mcg PO TAN [facility]; Protocol Levothyroxine Sodium (Synthroid) 25 mcg PO TUE [facility]; Protocol Metoclopramide HCl (Reglan) 5 mg PO 0600,1130,1630,2200 [facility] Last Admin: 02/03/19 15:45 Dose: 5 mg Ondansetron HCl (Zofran Inj) 4 mg IVP Q6H PRN; Protocol PRN Reason: Nausea/Vomiting Last Admin: 02/02/19 05:43 Dose: 4 mg Oxycodone/Acetaminophen (Percocet 5/325 Mg Tab) 1 tab PO Q4H PRN PRN Reason: Pain, severe (8-10) Stop: 02/04/19 08:59 Pantoprazole Sodium (Protonix Ec Tab) 40 mg PO 0600 [facility]; Protocol Scopolamine (Transderm-Scop) 1 patch TD Q3D [facility]; Protocol Last Admin: 02/03/19 15:41 Dose: Not Given - Labs Labs: 02/03/19 07:00 02/03/19 07:00 - Constitutional Appears: Non-toxic, No Acute Distress - Head Exam Head Exam: ATRAUMATIC, NORMAL INSPECTION - Eye Exam Eye Exam: EOMI, Normal appearance - Respiratory Exam Respiratory Exam: NORMAL BREATHING PATTERN. absent: Respiratory Distress - Cardiovascular Exam Cardiovascular Exam: +S1, +S2 - GI/Abdominal Exam GI & Abdominal Exam: Soft. 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 Maykel Villasenor PGY-4
[2019-02-04] MEDS: Enoxaparin 40 mg Syringe SC SCH (05:41)
--- NOTE | 2019-02-04 14:29 | CP.PCM.PN ---
Subjective - Date & Time of Evaluation Date of Evaluation: 02/04/19 Time of Evaluation: 07:00 - Subjective Subjective: GENERAL SURGERY PROGRESS NOTE FOR DR. HEDRICK Patient seen and examined at bedside at TCU. She reports ambulating with PT. She is tolerating regular diet and is having bowel function into the colostomy. She denies abdominal pain. Objective - Vital Signs/Intake and Output Vital Signs (last 24 hours): Temp Pulse Resp BP Pulse Ox 98.3 F 86 18 158/89 H 94 L 02/03/19 16:00 02/04/19 12:48 02/03/19 16:00 02/04/19 12:48 02/03/19 16:00 Intake and Output: 02/04/19 02/04/19 06:59 18:59 Intake Total 340 Balance 340 - Medications Medications: Current Medications Acetaminophen (Tylenol 325mg Tab) 650 mg PO Q6H PRN; Protocol PRN Reason: Pain, Mild (1-3) Alprazolam (Xanax) 0.25 mg PO Q12H PRN; Protocol PRN Reason: Anxiety Stop: 02/08/19 08:47 Atenolol (Tenormin) 25 mg PO BID [facility] Last Admin: 02/04/19 10:00 Dose: 25 mg Enoxaparin Sodium (Lovenox) 40 mg SC 0600 [facility]; Protocol Last Admin: 02/04/19 05:41 Dose: 40 mg Hydralazine HCl (Apresoline) 10 mg IVP Q6 PRN; Protocol PRN Reason: Systolic Blood Pressure Last Admin: 02/04/19 05:40 Dose: 10 mg Ketorolac Tromethamine (Toradol) 15 mg IVP Q6H PRN; Protocol PRN Reason: Pain, moderate (4-7) Last Admin: 02/02/19 05:44 Dose: 15 mg Levothyroxine Sodium (Synthroid) 25 mcg PO TAN [facility]; Protocol Levothyroxine Sodium (Synthroid) 25 mcg PO TUE [facility]; Protocol Losartan Potassium (Cozaar) 25 mg PO DAILY [facility] Last Admin: 02/04/19 12:48 Dose: 25 mg Metoclopramide HCl (Reglan) 5 mg PO 0600,1130,1630,2200 [facility] Last Admin: 02/04/19 12:26 Dose: 5 mg Ondansetron HCl (Zofran Inj) 4 mg IVP Q6H PRN; Protocol PRN Reason: Nausea/Vomiting Last Admin: 02/02/19 05:43 Dose: 4 mg Pantoprazole Sodium (Protonix Ec Tab) 40 mg PO 0600 [facility]; Protocol Scopolamine (Transderm-Scop) 1 patch TD Q3D [facility]; Protocol Last Admin: 02/03/19 15:41 Dose: Not Given - Labs Labs: 02/03/19 07:00 02/03/19 07:00 - Constitutional Appears: Non-toxic, No Acute Distress - Head Exam Head Exam: ATRAUMATIC, NORMAL INSPECTION - Eye Exam Eye Exam: EOMI, Normal appearance - Respiratory Exam Respiratory Exam: NORMAL BREATHING PATTERN. absent: Respiratory Distress - Cardiovascular Exam Cardiovascular Exam: +S1, +S2 - GI/Abdominal Exam GI & Abdominal Exam: Soft. 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 Maykel Villasenor PGY-4
--- NOTE | 2019-02-04 16:18 | CON ---
DATE: 02/03/2019 REASON FOR CONSULTATION: Rectal cancer. HISTORY OF PRESENT ILLNESS: Ms. Keyla Bentley is a 73-year-old female well known to me from office. She was recently admitted to the hospital for resection of the metastatic lesion in the pelvic wall. She underwent surgery by Dr. Brar, she also had hernia repair. prior to surgery, biopsy was positive for metastatic rectal cancer on the right side of pelvic wall. She is recuperating well from surgery, able to tolerate p.o. She is ambulating in the room. Denies any pain. PAST MEDICAL HISTORY: Hypothyroidism and anxiety. PAST SURGICAL HISTORY: APR resection. History of radiation. REVIEW OF SYSTEMS: As per HPI. Rest of 12-point review of systems reviewed negative. PHYSICAL EXAMINATION: GENERAL: Comfortable, not in acute distress. VITAL SIGNS: Temperature 98.7, heart rate 82 per minute, blood pressure 130/80 and oxygen saturation 98% on room air. HEENT: Pallor positive. NECK: No lymphadenopathy. CHEST: Air entry present and equal bilateral. No added sounds. CARDIOVASCULAR: S1 and S2 normal. No murmur. No gallop. ABDOMEN: Soft, and nontender. No hepatosplenomegaly. EXTREMITIES: No edema. LABORATORY DATA: White count 7.9, hemoglobin 10, hematocrit 32.7 and platelet 307. Sodium 137, potassium 3.7, BUN 12, and creatinine 0.6. TSH 2.9. MEDICATIONS: Reviewed. Tylenol 650 mg every 6 hours p.r.n., Xanax 0.25 mg every 12 hours, , Lovenox 40 mg daily, Toradol 15 mg IV every 6 hours p.r.n., levothyroxine 25 mcg once a week and Zofran p.r.n. ASSESSMENT AND PLAN: 1. Stage IV rectal cancer, recurrence in the rectal wall status post resection, status post hernia repair. She will need chemotherapy upon recovery from the surgery - 4 to 6 weeks after surgery. She had chemoradiation in the past and only oral capecitabine chemotherapy. She has refused infusional chemotherapy before. She would be a candidate for FOLFOX/Avastin. Molecular studies are sent already on the biopsy specimen. 2. Hypothyroidism. She sees endocrine, Dr. Garner. INTOLERANCE TO SYNTHROID TAKES ONLY ONCE A WEEK. 3. Anemia: mild, hemoglobin 10. We will do iron studies and if needed give IV iron. CEA has been normal 0.5. Thyroid function are within normal limits. to continue deep venous thrombosis prophylaxis lovenox 40 mg subcutaneously daily. Thank you, Dr. Brar for allowing us to participate in Ms. Bentley's care. Jenniffer Ye MD MTDBrittani
[2019-02-04 16:46] VITALS: TEMP 97.9; O2SAT 95
[2019-02-05] MEDS: Pantoprazole 40 mg EC Tab PO SCH (05:29)
[2019-02-05] MEDS: Levothyroxine 25 MCG TAB PO SCH ×2 (05:29→10:54)
[2019-02-05] MEDS: Enoxaparin 40 mg Syringe SC SCH (05:29)
--- NOTE | 2019-02-05 09:53 | PN ---
DATE: 02/05/2019 SUBJECTIVE: She is comfortable in chair in no acute distress. Complaining of soreness in the abdomen. She is able to tolerate soft diet. She is ambulating. No nausea, no vomiting. REVIEW OF SYSTEMS: As per HPI. Rest of 12-point review of systems reviewed and negative. PHYSICAL EXAMINATION: GENERAL: Text. VITAL SIGNS: Heart rate is 78 per minute, blood pressure 178/79, oxygen saturation 95% room air, respiratory rate 18 per minute. HEENT: Pallor positive. NECK: No lymphadenopathy. CHEST: Air entry present and equal bilateral. No added sounds. CARDIOVASCULAR: S1 and S2 normal. No murmur. No gallop. ABDOMEN: Slightly distended. Nontender. [place] present midline. EXTREMITIES: No edema. CENTRAL NERVOUS SYSTEM: Alert and oriented x3. No focal sensory motor deficit. LABORATORY DATA: White count 7.9, hemoglobin 10, hematocrit 32.7, platelet 307. Sodium 137, potassium 4.3, creatinine 0.3. MEDICATIONS: Reviewed. ASSESSMENT: 1. Rectal cancer recurrence in pelvic wall. 2. Anemia. 3. Hypothyroidism. 4. Mild abdominal discomfort. PLAN: Pain is fairly controlled with Toradol. She is ambulating now. Tolerating oral. Continue on DVT prophylaxis with Lovenox subcu daily, Xanax p.r.n. Synthroid is once a week. Labs showed mild anemia, hemoglobin of 10. We will reevaluate once discharged from the hospital. Discussed the pathology report with her which was unremarkable for malignancy. Biopsy report was positive for rectal adenocarcinoma. Discussed with the staff nurse, advised to remove the port needle. Thank you, Dr. Brar, for allowing us to participate in Ms. Bentley's care. Jenniffer Ye MD
[2019-02-05] MEDS ORDERED: Levothyroxine 25 MCG TAB PO SCH (10:00)
--- NOTE | 2019-02-05 11:25 | CP.PCM.PN ---
Subjective - Date & Time of Evaluation Date of Evaluation: 02/05/19 Time of Evaluation: 07:00 - Subjective Subjective: GENERAL SURGERY PROGRESS NOTE FOR DR. HEDRICK Patient seen and examined at bedside at TCU. She is tolerating regular diet, denies nausea or vomiting. She is having bowel function into the colostomy. She denies abdominal pain. On-Q was removed yesterday. She denies fever/chills. She is using IS. Objective - Vital Signs/Intake and Output Vital Signs (last 24 hours): Temp Pulse Resp BP Pulse Ox 97.9 F 85 18 131/83 95 02/04/19 10:00 02/05/19 11:00 02/04/19 10:00 02/05/19 11:00 02/04/19 16:47 - Medications Medications: Current Medications Acetaminophen (Tylenol 325mg Tab) 650 mg PO Q6H PRN; Protocol PRN Reason: Pain, Mild (1-3) Alprazolam (Xanax) 0.25 mg PO Q12H PRN; Protocol PRN Reason: Anxiety Stop: 02/08/19 08:47 Atenolol (Tenormin) 25 mg PO BID [facility] Last Admin: 02/05/19 11:00 Dose: 25 mg Enoxaparin Sodium (Lovenox) 40 mg SC 0600 [facility]; Protocol Last Admin: 02/05/19 05:29 Dose: 40 mg Hydralazine HCl (Apresoline) 10 mg IVP Q6 PRN; Protocol PRN Reason: Systolic Blood Pressure Last Admin: 02/04/19 05:40 Dose: 10 mg Ketorolac Tromethamine (Toradol) 15 mg IVP Q6H PRN; Protocol PRN Reason: Pain, moderate (4-7) Last Admin: 02/02/19 05:44 Dose: 15 mg Levothyroxine Sodium (Synthroid) 25 mcg PO TAN [facility]; Protocol Last Admin: 02/05/19 10:54 Dose: Not Given Levothyroxine Sodium (Synthroid) 25 mcg PO TUE [facility]; Protocol Losartan Potassium (Cozaar) 25 mg PO DAILY [facility] Last Admin: 02/05/19 10:55 Dose: 25 mg Metoclopramide HCl (Reglan) 5 mg PO 0600,1130,1630,2200 [facility] Last Admin: 02/05/19 05:30 Dose: Not Given Ondansetron HCl (Zofran Inj) 4 mg IVP Q6H PRN; Protocol PRN Reason: Nausea/Vomiting Last Admin: 02/02/19 05:43 Dose: 4 mg Pantoprazole Sodium (Protonix Ec Tab) 40 mg PO 0600 [facility]; Protocol Last Admin: 02/05/19 05:29 Dose: 40 mg Scopolamine (Transderm-Scop) 1 patch TD Q3D [facility]; Protocol Last Admin: 02/03/19 15:41 Dose: Not Given - Labs Labs: 02/03/19 07:00 02/03/19 07:00 - Constitutional Appears: Non-toxic, No Acute Distress - Head Exam Head Exam: ATRAUMATIC, NORMAL INSPECTION - Respiratory Exam Respiratory Exam: NORMAL BREATHING PATTERN. absent: Respiratory Distress - Cardiovascular Exam Cardiovascular Exam: +S1, +S2 - GI/Abdominal Exam GI & Abdominal Exam: Soft. absent: Distended, Firm, Guarding, Rigid, Tenderness, Rebound Additional comments: Dressing at inferior portion of incision over previous On-Q site changed. Small amount of dried drainage. 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 Maykel Villasenor PGY-4
[2019-02-06] MEDS: Enoxaparin 40 mg Syringe SC SCH (06:30)
[2019-02-06] MEDS: Pantoprazole 40 mg EC Tab PO SCH (06:30)
[2019-02-06 07:09] LABS: BASO # 0.01 K/mm3 (0.0-2.0); BASO % 0.1 % (0.0-3.0); EOS # 0.2 (0.0-0.7); EOS % 2.9 % (1.5-5.0); HEMOGLOBIN 10.3 g/dL (12.0-16.0); LYMPH # 0.7 (1.2-3.4); LYMPH % 10.2 % (22.0-35.0); MEAN CELL VOLUME 91.3 fl (80.0-105.0); MEAN CORPUSCULAR HEMOGLOBIN 28.9 pg (25.0-35.0); MEAN CORPUSCULAR HGB CONC 31.7 g/dl (31.0-37.0); MEAN PLATELET VOLUME 9.3 fl (7.0-11.0); MONO # 0.6 (0.1-0.6); RBC 3.56 10^6/uL (3.5-6.1); RED CELL DISTRIBUTION WIDTH 13.7 % (11.5-14.5)
--- NOTE | 2019-02-06 07:34 | CP.PCM.PN ---
Subjective - Date & Time of Evaluation Date of Evaluation: 02/06/19 Time of Evaluation: 07:31 - Subjective Subjective: Surgery Progress Note for Dr. Brar 73F seen and evaluated at bedside this morning. No acute events overnight. No complaints this morning. Ostomy pink, patent, productive. Patient ambulating without difficulty. Denies f/c, n/v/d, SOB, CP, or urinary symptoms. Objective - Vital Signs/Intake and Output Vital Signs (last 24 hours): Temp Pulse Resp BP Pulse Ox 97.9 F 77 18 134/69 95 02/04/19 10:00 02/05/19 17:27 02/04/19 10:00 02/05/19 17:27 02/05/19 13:21 Intake and Output: 02/06/19 02/06/19 06:59 18:59 Intake Total 360 Balance 360 - Medications Medications: Current Medications Acetaminophen (Tylenol 325mg Tab) 650 mg PO Q6H PRN; Protocol PRN Reason: Pain, Mild (1-3) Alprazolam (Xanax) 0.25 mg PO Q12H PRN; Protocol PRN Reason: Anxiety Stop: 02/08/19 08:47 Atenolol (Tenormin) 25 mg PO BID [facility] Last Admin: 02/05/19 17:27 Dose: 25 mg Enoxaparin Sodium (Lovenox) 40 mg SC 0600 [facility]; Protocol Last Admin: 02/06/19 06:30 Dose: 40 mg Hydralazine HCl (Apresoline) 10 mg IVP Q6 PRN; Protocol PRN Reason: Systolic Blood Pressure Last Admin: 02/04/19 05:40 Dose: 10 mg Ketorolac Tromethamine (Toradol) 15 mg IVP Q6H PRN PRN Reason: Pain, moderate (4-7) Levothyroxine Sodium (Synthroid) 25 mcg PO TAN [facility]; Protocol Last Admin: 02/05/19 10:54 Dose: Not Given Levothyroxine Sodium (Synthroid) 25 mcg PO TUE [facility]; Protocol Losartan Potassium (Cozaar) 25 mg PO DAILY [facility] Metoclopramide HCl (Reglan) 5 mg PO 0600,1130,1630,2200 [facility] Last Admin: 02/06/19 06:31 Dose: Not Given Ondansetron HCl (Zofran Inj) 4 mg IVP Q6H PRN; Protocol PRN Reason: Nausea/Vomiting Last Admin: 02/02/19 05:43 Dose: 4 mg Pantoprazole Sodium (Protonix Ec Tab) 40 mg PO 0600 [facility]; Protocol Last Admin: 02/06/19 06:30 Dose: 40 mg Scopolamine (Transderm-Scop) 1 patch TD Q3D [facility]; Protocol Last Admin: 02/03/19 15:41 Dose: Not Given - Labs Labs: 02/06/19 06:00 02/03/19 07:00 - Constitutional Appears: Non-toxic, No Acute Distress - Head Exam Head Exam: ATRAUMATIC, NORMAL INSPECTION, NORMOCEPHALIC - Eye Exam Eye Exam: EOMI - ENT Exam ENT Exam: Mucous Membranes Moist - Respiratory Exam Respiratory Exam: NORMAL BREATHING PATTERN. absent: Wheezes, Respiratory Distress - Cardiovascular Exam Cardiovascular Exam: REGULAR RHYTHM - GI/Abdominal Exam GI & Abdominal Exam: Soft, Normal Bowel Sounds. absent: Tenderness Additional comments: ostomy pink, patent, productive midline abd incision c/d/i w/ barron lower quadrant dressing changed - Extremities Exam Extremities Exam: Normal Inspection - Neurological Exam Neurological Exam: Alert, Awake, Oriented x3 - Psychiatric Exam Psychiatric exam: Normal Affect, Normal Mood - Skin Skin Exam: Dry, Intact, Normal Color, Warm Assessment and Plan - Assessment and Plan (Free Text) Assessment: 73F w/ rectal carcinoma recurrence s/p exploratory laparotomy w/ primary ventral hernia repair, primary parastomal hernia repair, small bowel resection and RIJ port-a-cath insertion POD10 Plan: Patient in TCU 2/2 deconditioning Continue aggressive PT Encourage ambulation and OOBTC Midline abdominal dressing change daily Will remove 1/2 barron tomorrow prior to discharge DC planning D/w Dr. Maykel Rodriguez PGY1
[2019-02-06 07:37] LABS: ALB/GLOB RATIO 1.2 (1.1-1.8); ALBUMIN 3.3 g/dL (3.0-4.8); ALT/SGPT 38 U/L (7-56); AST/SGOT 26 U/L (14-36); BLOOD UREA NITROGEN 10 mg/dL (7-21); CALCIUM 8.2 mg/dL (8.4-10.5); GFR NON-AFRICAN AMERICAN > 60
--- NOTE | 2019-02-06 08:15 | CP.PCM.PCO ---
Physician Communication Note - Physician Communication Note Physician Communication Note: Doing well/concur with d/c 02/07
[2019-02-07] MEDS: Pantoprazole 40 mg EC Tab PO SCH (05:32)
[2019-02-07] MEDS: Enoxaparin 40 mg Syringe SC SCH (05:32)
--- NOTE | 2019-02-07 07:48 | CP.PCM.DIS ---
Provider - Provider Date of Admission: 01/31/19 13:31 Attending physician: Phill Brar MD Primary care physician: Phill Brar MD Consults: 01/31/19 15:31 Nursing Referral for Wound Care Routine Comment: POST EXPLORATORY LAP, REPAIR OF 3 VENTRAL HERNIA, Physician Instructions: Reason For Exam: EVALUATION-BOWEL RESECTION WITH COLOSTOMY Social Work Referral Routine Comment: NEEDS ASSISTANCE AT HOME,VISITING NURSE,COLOSTOMY Physician Instructions: Reason For Exam: EVALUATION-PT LIVES ALONE. HAD MAJOR SURGERY. 01/31/19 15:50 Nursing Referral for Wound Care Routine Comment: COLOSTOMY CARE,MID ABDOMINAL BARRON.X2 SMALL INCI Physician Instructions: Reason For Exam: EVALUATION 02/03/19 19:55 Physician Consult Routine Comment: Consulting Provider: Jenniffer Ye Consulting Physician: Jenniffer Ye Reason for Consult: Rec rectal CA Time Spent in preparation of Discharge (in minutes): 60 Hospital Course - Lab Results Lab Results: Most Recent Lab Values WBC 7.0 10^3/uL (4.5-11.0) 02/06/19 06:00 RBC 3.56 10^6/uL (3.5-6.1) 02/06/19 06:00 Hgb 10.3 g/dL (12.0-16.0) L 02/06/19 06:00 Hct 32.5 % (36.0-48.0) L 02/06/19 06:00 MCV 91.3 fl (80.0-105.0) 02/06/19 06:00 MCH 28.9 pg (25.0-35.0) 02/06/19 06:00 MCHC 31.7 g/dl (31.0-37.0) 02/06/19 06:00 RDW 13.7 % (11.5-14.5) 02/06/19 06:00 Plt Count 343 10^3/uL (120.0-450.0) 02/06/19 06:00 MPV 9.3 fl (7.0-11.0) 02/06/19 06:00 Neut % (Auto) 78.8 % (50.0-68.0) H 02/06/19 06:00 Lymph % (Auto) 10.2 % (22.0-35.0) L 02/06/19 06:00 [place] % (Auto) 8.0 % (1.0-6.0) H 02/06/19 06:00 Eos % (Auto) 2.9 % (1.5-5.0) 02/06/19 06:00 Baso % (Auto) 0.1 % (0.0-3.0) 02/06/19 06:00 Lymph # (Auto) 0.7 (1.2-3.4) L 02/06/19 06:00 [place] # (Auto) 0.6 (0.1-0.6) 02/06/19 06:00 Eos # (Auto) 0.2 (0.0-0.7) 02/06/19 06:00 Baso # (Auto) 0.01 K/mm3 (0.0-2.0) 02/06/19 06:00 Absolute Neuts (auto) 5.50 (1.4-6.5) 02/06/19 06:00 Sodium 140 mmol/L (132-148) 02/06/19 06:00 Potassium 3.3 mmol/L (3.6-5.0) L 02/06/19 06:00 Chloride 102 mmol/L (98-107) 02/06/19 06:00 Carbon Dioxide 31 mmol/L (21-33) 02/06/19 06:00 Anion Gap 11 (10-20) 02/06/19 06:00 BUN 10 mg/dL (7-21) 02/06/19 06:00 Creatinine 0.6 mg/dl (0.7-1.2) L 02/06/19 06:00 Est GFR ( Amer) > 60 02/06/19 06:00 Est GFR (Non-Af Amer) > 60 02/06/19 06:00 Random Glucose 94 mg/dL (70-110) 02/06/19 06:00 Calcium 8.2 mg/dL (8.4-10.5) L 02/06/19 06:00 Phosphorus 3.8 mg/dL (2.5-4.5) 02/06/19 06:00 Magnesium 1.9 mg/dL (1.7-2.2) 02/06/19 06:00 Total Bilirubin 0.7 mg/dL (0.2-1.3) 02/06/19 06:00 AST 26 U/L (14-36) 02/06/19 06:00 ALT 38 U/L (7-56) 02/06/19 06:00 Alkaline Phosphatase 104 U/L (38-126) 02/06/19 06:00 Total Protein 6.0 g/dL (5.8-8.3) 02/06/19 06:00 Albumin 3.3 g/dL (3.0-4.8) 02/06/19 06:00 Globulin 2.7 gm/dL 02/06/19 06:00 Albumin/Globulin Ratio 1.2 (1.1-1.8) 02/06/19 06:00 - Hospital Course Hospital Course: This is a 73 year old female, past medical history significant for rectal cancer s/p APR w/ end colostomy and oral chemotherapy with recurrence. Patient arrived to same day surgery and underwent exploratory laparotomy, primary ventral hernia repair x 2, primary parastomal hernia repair, small bowel resection with side to side anastomosis, RIJ portacath insertion on 01/27/[address] Phill Brar. Patient tolerated procedure and was taken to PACU in stable condition. A Jerrell drain, OnQ, and NGT were placed and monitored. Patient had delayed return of bowel function and diet was advanced as tolerated. Patient jerrell drain and NGT removed on 01/30/19. OnQ removed as well once patient's pain was controlled. Patient was then discharged to TCU for further rehabilitation secondary to deconditioning in the post-operative period. Patient worked with physical therapy daily without difficulty. Patient tolerated diet, pain was controlled, and ambulated. Home medications were continued during admission. Appropriate DVT and GI prophylaxis administered. On 02/07, half of the midline incision barron were removed. Patient discharged to home in stable condition. Patient instructed to follow up with Dr. Brar in office, call for appointment. At that time the remaining barron will be removed. Patient acknowledged and verbalized understanding of instructions provided in discharge packet. All questions and concerns have been addressed. Patient instructed to return to the nearest emergency department if symptoms acutely worsen. Above is a brief summary, for a detailed hospital course please refer to medical records. Discharge Exam - Head Exam Head Exam: ATRAUMATIC, NORMAL INSPECTION, NORMOCEPHALIC - Eye Exam Eye Exam: EOMI, Normal appearance Pupil Exam: PERRL - ENT Exam ENT Exam: Mucous Membranes Moist - Respiratory Exam Respiratory Exam: NORMAL BREATHING PATTERN. absent: Wheezes, Respiratory Distress - Cardiovascular Exam Cardiovascular Exam: REGULAR RHYTHM, +S1, +S2 - GI/Abdominal Exam GI & Abdominal Exam: Normal Bowel Sounds, Soft. absent: Distended, Firm, Guarding, Rebound, Rigid, Tenderness Additional comments: dressing in the lower abdominal quadrant c/d/i barron intact - every other staple removed - Extremities Exam Extremities exam: normal inspection, pedal pulses present - Back Exam Back exam: absent: CVA tenderness (L), CVA tenderness (R) - Neurological Exam Neurological exam: Alert, Oriented x3 - Psychiatric Exam Psychiatric exam: Normal Affect, Normal Mood - Skin Skin Exam: Dry, Intact, Normal Color, Warm Discharge Plan - Follow Up Plan Condition: GOOD Disposition: HOME/ ROUTINE Instructions: Rectal Cancer (DC), Abdominal Hernia Repair (DC), Small Bowel Resection (DC) Additional Instructions: Please follow up with Dr. Brar in office in 1 week. Please call to make an appointment. The rest of your barron will be removed at that time. Please resume all home medications and regular diet as tolerated. Activity as tolerated. No heavy lifting greater than 15 lbs for the next 4 weeks. Ok to shower. Avoid baths, pools, or other large bodies of water for next 2 weeks. Lower midline abdominal dressing changed as needed. Dress with 4x4 gauze and paper tape. If symptoms worsen, promptly return to the nearest emergency department. Referrals: Phill Brar MD [Primary Care Provider] -
[2019-02-07 07:55] LABS: BLOOD UREA NITROGEN 13 mg/dL (7-21); CALCIUM 8.5 mg/dL (8.4-10.5); GFR NON-AFRICAN AMERICAN > 60
[2019-02-07] MEDS ORDERED: Potassium Chloride 20 mEq ER Tab PO SCH (08:00)
[2019-02-07 10:21] VITALS: BP 130/82; PULSE 101
[2019-02-10] MEDS ORDERED: Levothyroxine 25 MCG TAB PO SCH (06:00)
== END 2019-02-07 12:23 | disposition home or self-care (01) | DRG 949 ==
LOC: TRCU 13:31
PROVIDERS: ADMIT Surgery; ATTEND Surgery
PROC: F07Z9FZ Gait Training/Functional Ambulation Treatment using Assistive, Adaptive, Supportive or Protective Equipment (ICD-10-PCS; principal; 2019-02-02)
PROC: F07Z5FZ Bed Mobility Treatment using Assistive, Adaptive, Supportive or Protective Equipment (ICD-10-PCS; 2019-02-02)
PROC: F07Z8ZZ Transfer Training Treatment (ICD-10-PCS; 2019-02-02)
PROC: F07 Physical Rehabilitation and Diagnostic Audiology, Rehabilitation, Motor Treatment (ICD-10-PCS; 2019-02-02)
PROC: F08Z1FZ Dressing Techniques Treatment using Assistive, Adaptive, Supportive or Protective Equipment (ICD-10-PCS; 2019-02-02)
PROC: F08Z2FZ Grooming/Personal Hygiene Treatment using Assistive, Adaptive, Supportive or Protective Equipment (ICD-10-PCS; 2019-02-04)
DX: Z48.3 Aftercare following surgery for neoplasm (principal); C20 Malignant neoplasm of rectum; K43.5 Parastomal hernia without obstruction or gangrene; D64.9 Anemia, unspecified; R11.14 Bilious vomiting; E03.9 Hypothyroidism, unspecified; F41.9 Anxiety disorder, unspecified; Z93.3 Colostomy status